=== PATIENT | female | born 1940 | race Caucasian/White ===

== ENCOUNTER → 2019-05-16 | Outpatient (CLI) | payer OTHER ==
--- NOTE | 2019-05-19 14:46 | PCVCIMAG ---
APPROVED REPORT Study performed: 05/16/2019 11:22:16 EXAM: Comprehensive 2D, Doppler, and color-flow Echocardiogram Patient Location: Echo lab Room #: 2Status: routine BSA: 2.19 HR: 113 bpmBP: 144/106 mmHg Rhythm: Atrial Fibrillation Other Information Study Quality: Adequate Risk Factors: Cardiac Risk Factors: Hyperlipidemia Indications Atrial Fibrillation Tachycardia 2D Dimensions IVSd: 9.28 (7-11mm)LVOT Diam: 21.76 (18-24mm) LVDd: 52.38 mm PWd: 8.33 (7-11mm)Ascending Ao: 29.10 (22-36mm) LVDs: 40.35 (25-40mm) Left Atrium: 55.23 (27-40mm) Aortic Root: 25.52 mm LV Single Plane 4CH: 37.72 % LV Single Plane 2CH: 42.41 % Biplane EF: 37.3 % Volumes Left Atrial Volume (Systole) Single Plane 4CH: 64.89 mLSingle Plane 2CH: 46.50 mL Biplane LA Volume: 58.00 mLLA ESV Index: 26.00 mL/m2 Aortic Valve AoV Peak Taiwo.: 1.00 m/s AO Peak Gr.: 4.19 mmHgLVOT Max P.44 mmHg LVOT Max V: 0.74 m/s MATTEO Vmax: 2.75 cm2 Mitral Valve MV E Max Taiwo.: 1.01 m/s MV Max Taiwo.: 5.30 m/s MV Mean Taiwo.: 4.15 m/s MV PHT: 26.37 ms MVA (PHT): 8.34 cm2 Pulmonary Valve PV Peak Taiwo.: 1.04 m/sPV Peak Gr.: 4.42 mmHg Tricuspid Valve TR Peak Taiwo.: 3.41 m/s TR Peak Gr.: 46.55 mmHg TV Vmax: 0.74 m/sPA Pressure: 54.00 mmHg Left Ventricle The left ventricle is normal size. There is normal LV segmental wall motion. There is normal left ventricular wall thickness. Left ventricular systolic function is normal. The left ventricular ejection fraction is within the normal range. LVEF is 35-40%.global hypo This study is not technically sufficient to allow evaluation of the LV diastolic function due to atrial fibrillation. Right Ventricle The right ventricle is normal size. The right ventricular systolic function is normal. Atria Left atrium is mildly dilated. Right atrium is mildly dilated. Aortic Valve Aortic valve is trileaflet. The aortic valve is normal in structure and function. No aortic regurgitation is present. There is no aortic valvular stenosis. Mitral Valve The mitral valve is normal in structure. Mild mitral regurgitation. No evidence of mitral valve stenosis. Tricuspid Valve The tricuspid valve is normal in structure. Mild tricuspid regurgitation with a PA pressure of 54 mmHg. Moderate pulmonary hypertension. Pulmonic Valve The pulmonary valve is normal in structure. There is no pulmonic valvular regurgitation. Great Vessels The aortic root is normal in size. The ascending aorta is normal in size. Aortic arch is not well visualized. IVC is mildly dilated and collapses >50% with inspiration. Pericardium There is no pericardial effusion. There is no pleural effusion. <Conclusion> The left ventricle is normal size. LVEF is 35-40%.global hypo This study is not technically sufficient to allow evaluation of the LV diastolic function due to atrial fibrillation. The right ventricle is normal size. Left atrium is mildly dilated. Right atrium is mildly dilated. Aortic valve is trileaflet. The aortic valve is normal in structure and function. Mild mitral regurgitation. Mild tricuspid regurgitation with a PA pressure of 54 mmHg. Moderate pulmonary hypertension. The aortic root is normal in size. There is no pericardial effusion.
== END | disposition home or self-care (01) ==
LOC: PCVCIMAG 11:10
PROVIDERS: ATTEND Internal Medicine Cardiovascular Disease
DX: I08.1 Rheumatic disorders of both mitral and tricuspid valves (principal); I27.20 Pulmonary hypertension, unspecified; I10 Essential (primary) hypertension; I48.91 Unspecified atrial fibrillation; I42.9 Cardiomyopathy, unspecified; E78.00 Pure hypercholesterolemia, unspecified; D68.59 Other primary thrombophilia; Z79.899 Other long term (current) drug therapy
CPT/HCPCS: 93306